=== PATIENT | female | born 1950 | race Caucasian/White ===

== ENCOUNTER 2024-05-28 14:16 | Outpatient (AMB) | payer MEDICARE, SELFPAY ==
--- NOTE | 2024-05-28 14:38 | AM.OFFWIN_ITS ---
Intake Vital Signs 05/28/24 14:43 Height 5 ft 6.5 in Weight 195 lb 6 oz BMI 31.1 BP 122/70 Blood Pressure Location Lt brachial Position Sitting Pulse 81 Pulse Source Pulse Oximeter Temp 97.6 F Temp Source Oral Pulse Oximetry (%) 97 Oxygen Delivery Method Room Air Intake Visit Reasons: [employer] ?Tick on back Intake Note: pt is here for tick on back, pulled out but patient suspects head is still in her back Patient Tobacco Use Status: Never used Tobacco Allergies No Known Allergies Allergy (Verified 05/28/24 14:38) Medication List - Last Reconciled 05/28/24 by Sandi Salas, STEVEN atorvastatin 40 mg PO DAILY chlorthalidone 25 mg PO DAILY levothyroxine 75 mcg PO DAILY sertraline 50 mg PO DAILY Do you need a note to return to daycare/school/sports/work: No HPI [employer] ?Tick on back HPI Details 74-year-old female patient presents with tick bite to the right lower back. She removed the majority of an engorged tick, and believes that the head was remaining underneath her skin. She notes a small amount of redness to the area, no pain, no fever, no chills, no body aches. She does note that the last time she was outside and potentially got the tick on her was 4 days ago. 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 [facility] Social History Patient Tobacco Use Status: Never used Tobacco Review of Systems Const All systems reviewed & are unremarkable except as noted in HPI and below Reports no additional complaints Physical Exam Vital Signs: Last Vital Signs Temp 97.6 F 05/28/24 14:43 Pulse 81 05/28/24 14:43 BP 122/70 05/28/24 14:43 Pulse Ox 97 05/28/24 14:43 Oxygen Delivery Method Room Air 05/28/24 14:43 BMI result Body Mass Index 31.1 Const General: cooperative, healthy appearing, comfortable, no acute distress, alert and awake Orientation/consciousness: patient oriented x3 Limitations: no limitations Skin Other: Retained tick head to right lower lumbar region, with approximately 3cm in diameter or erythema surrounding, no warmth or discharge. General skin exam: elasticity normal and turgor normal Neuro General: patient oriented x3 Assessment & Plan Assessment & Plan (1) Tick bite of back: Code(s): S30.860A - Insect bite (nonvenomous) of lower back and pelvis, initial encounter; W57.XXXA - Bitten or stung by nonvenomous insect and other nonvenomous arthropods, initial encounter Qualifiers: Encounter type: initial encounter Qualified Code(s): S30.860A - Insect bite (nonvenomous) of lower back and pelvis, initial encounter; W57.XXXA - Bitten or stung by nonvenomous insect and other nonvenomous arthropods, initial encounter Plan: Given timeline since implantation of tic, versus timeline to removal discussed prophylactic doxycycline versus watch and wait approach. Patient elects antimicrobial therapy. Advised to continue to watch for signs and symptoms of Lyme or the other tick-borne illnesses such as worsening rash, joint pain, fever, chills, or general feelings of unwell. Follow-up with PCP as needed. Plan See above. Medications: New doxycycline hyclate Take 2 capsules together x1. 200 mg (2 x 100 mg) PO DAILY 1 day 2 caps 0RF Coding Level of Care Code New Pt Level 3 (08879) Diagnoses Tick bite of back, initial encounter S30.860A; W57.XXXA Encounter type: initial encounter
[2024-05-28 14:43] VITALS: BP 122/70; PULSE 81; TEMP 36.4; O2SAT 97; BMI 31.1
== END 2024-05-28 15:09 | disposition home or self-care (01) ==
PROVIDERS: PCP Internal Medicine; Visit Provider Registered Nurse
DX: S30.860A Insect bite (nonvenomous) of lower back and pelvis, initial encounter (principal); W57.XXXA Bitten or stung by nonvenomous insect and other nonvenomous arthropods, initial encounter
CPT/HCPCS: 99203